=== PATIENT | female | born 1990 | race Two or more races ===

== ENCOUNTER 2017-07-29 10:27 | Emergency (ER) | payer MEDICAID ==
[~2017-07-29] VITALS: Ht 154.9 cm; Wt 68.0 kg
[2017-07-29 10:35] VITALS: BP 107/69
[2017-07-29] MEDS ORDERED: KETOROLAC TROMETH 60MG/2ML VIAL IM ONE (17:30)
== END 2017-07-29 17:49 | disposition home or self-care (01) ==
LOC: ER 10:27
DX: S76.011A Strain of muscle, fascia and tendon of right hip, initial encounter (principal); S80.01XA Contusion of right knee, initial encounter; W19.XXXA Unspecified fall, initial encounter; Y93.89 Activity, other specified; Y92.89 Other specified places as the place of occurrence of the external cause; Y99.8 Other external cause status
CPT/HCPCS: 73502; 73562; 96372; 99284; J1885